=== PATIENT | female | born 1975 | race Caucasian/White ===

== ENCOUNTER 2017-11-03 08:00 | Inpatient (IN) | payer OTHER ==
[~2017-11-03] VITALS: Ht 170.2 cm; Wt 114.8 kg
--- NOTE | 2017-11-03 08:36 | History & Physical ---
General Information and HPI MD Statement: I have seen and personally examined SPATAFORE,FELIZ and documented this H&P. The patient is a 42 year old female at 40 weeks and 2 days gestation who presented with a chief complaint of IOL for AMA.. Source of Information: patient, old records Exam Limitations: no limitations History of Present Illness: Pt well known to our practice being induced for AMA >40, IVF with egg donor H/O anxiety on valtrex supression Allergies/Medications Allergies: Coded Allergies: acetaminophen (From PERCOCET) (UNKNOWN 11/03/17) PERCOCET ALLERGY PER VANESSA RN ON 11/03/17 ([facility]) oxycodone (From PERCOCET) (UNKNOWN 11/03/17) PERCOCET ALLERGY PER VANESSA RN ON 11/03/17 ([facility]) Compliance With Home Meds: GOOD Past History backup administrator History : 6 Para: 1 Last Menstrual Period: unk Estimated Delivery Date: 11/01/2017 Past backup administrator History: none Past Pregnancies Past Pregnancies: Date of Delivery: 07/14/2012 Gestational Age: 39 Length of Labor: 18hrs Weight: 8#9oz Type of Delivery: vaginal Anesthesia: block Place of Delivery: [facility] Complications: none Surgical History Pertinent Surgical History: none Review of Systems Review of Systems Constitutional: Reports: no symptoms. Denies: chills, fever. EENTM: Denies: blurred vision, double vision, visual changes. Cardiovascular: Denies: chest pain. Respiratory: Denies: short of breath. GI: Denies: diarrhea, nausea, vomiting. Neurological/Psychological: Reports: no symptoms. Exam & Diagnostic Data Last 24 Hrs of Vital Signs/I&O VSS Obstetric Exam Wgt Gained During : 3LBS Pelvimetry: TESTED TO 8#9OZ Dilation (cm): 3 Effacement (%): 50 Station: -4 Membranes: intact Fluid: unknown Fundal Height (cm): 40 Multiple Gestation? No Contractions: NONE #1 - FHR Baseline: 130 Category: 1 Estimated Weight: 4110G Presentation: VTX Patient for Induction? Yes Mora Score Mora Score Response Value Cervix Position: mid-position 1 Cervix Consistency: soft 2 Cervix Effacement: 30-50% 1 Cervix Dilation: 3-4 cm 2 Cervix Station: -2 1 Total 7 Physical Exam General Appearance Alert, Oriented X3, Cooperative, No Acute Distress Skin No Rashes HEENT Atraumatic Neck Supple Cardiovascular Regular Rate Lungs Clear to Auscultation Abdomen Soft Neurological Normal Gait, Normal Speech, Normal Tone Labs Blood Type & Rh: A POS Antibody Screen: NEG Hct/Hgb & Platelets #1: 41.5/14.4/161 Hct/Hgb & Platelets #2: 38.4/13.0/147 Rubella: IMM VDRL #1: NR VDRL #2: NR HbsAg: NEG HIV #1: NR HIV #2 NR 1 Hr P Group B Strep: NEG Initial Ultrasound: EGG DONOR IVF Anatomy Ultrasound: 06/14/17 NORMAL Genetic Testing: QUAD NEGATIVE EARLY SCREEN NEGATIVE Assessment/Plan Assessment/Plan: iup AT TERM AMA recommend induce at 40 weeks obesity BMI 39.6 IVF egg donor echo normal ATU anatomy normal anxiety on zoloft LGA shoulher screen reviewed with pt wants to attempt a vaginal delivery low platlets 147K repeat today poor weight gain 3 lbs but pt obese from conception BP 140/88 on admission will get mild PIH labs has not had evevated pressures during . 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 Core Measures Venous Thromboembolism VTE Risk Factors / No Mechanical VTE Prophylaxis d/t LowRisk-No Interven Req'd No VTE Pharm Prophylaxis d/t LowRisk-No Interven Req'd
[2017-11-03 09:39] LABS: ABSOLUTE BASOPHIL COUNT 0 /CUMM (0.0-0.2); ABSOLUTE EOSINOPHIL COUNT 0.1 /CUMM (0.0-0.7); ABSOLUTE GRANULOCYTE CT 4.7 /CUMM (1.4-6.5); ABSOLUTE LYMPH COUNT 2.1 /CUMM (1.2-3.4); ABSOLUTE MONOCYTE COUNT 0.6 /CUMM (0.10-0.60); BASOPHIL % 0.3 % (0.0-2.0); EOSINOPHIL % 1.3 % (0-5); GRANULOCYTE % 62.6 % (42.2-75.2); HEMATOCRIT 39.2 % (37-47); MEAN CORPUSCULAR HGB 32.8 PG (27.0-31.0); MEAN CORPUSCULAR HGB CONC 34.8 G/DL (33.0-37.0); MEAN CORPUSCULAR VOLUME 94.3 FL (81.0-99.0); MEAN PLATELET VOLUME 10.1 FL (7.4-10.4); PLATELET COUNT 124 /CUMM (130-400); RBC DISTRIBUTION WIDTH 15.2 % (11.5-14.5); RED BLOOD CELL CT 4.15 /CUMM (4.20-5.40); WHITE BLOOD CELL COUNT 7.4 /CUMM (4.8-10.8)
--- NOTE | 2017-11-03 16:55 | PN- Obstetrical ---
Subjective Subjective: pt feeling mild ctx Objective Last 24 Hrs of Vital Signs/I&O afeb, v/ss Intake & Output 11/03 1600 11/03 0800 11/03 0000 Intake Total Output Total Balance Patient 253 lb Weight Physical Exam: nad abd soft nt gravid Obstetric Exam Dilation (cm): 4 Effacement (%): 100 Station: -2 Membranes: AROM Fluid: light meconium Multiple Gestation? No Contractions: q3 Infant #1 - FHR Baseline: 130 Category: 1 Estimated Weight: 4110G Presentation: VTX Current Medications: Current Medications Sig/Teresa Start time Last Medication Dose Route Stop Time Status Admin Butorphanol Tartrate 1 MG Q4P PRN 11/03 0845 AC IV Butorphanol Tartrate 1 MG Q4P PRN 11/03 0845 AC IM Butorphanol Tartrate 2 MG Q4P PRN 11/03 0845 AC IV Butorphanol Tartrate 2 MG Q4P PRN 11/03 0845 AC IM Famotidine 20 MG BID 11/03 1520 AC PO Lactated Ringer's 1,000 ML Q8H 11/03 0845 AC 11/03 IV 0957 Oxytocin 30 UNITS PER PROTOCL 11/03 0845 AC 11/03 Lactated Ringer's 500 ML IV 0932 Assessment/Plan Assessment/Plan p1 @ 40wks active labor, lga fetus, gbs neg, s/p arom, lt mec, on pit for AMA IOL, and maternal status reassuring -pain mgmt per pt request -cont pit -peds at delivery -shoulder dystocia precautions ANSVD
--- NOTE | 2017-11-03 19:21 | PN- OBGYN ---
Surgical Brief Attending Note Brief Attending Note: pt w/ mild rectal pressure s/p epidural afeb, v/ss sve 8/100/-2 pit @ 14mu cont current mgmt
--- NOTE | 2017-11-03 21:15 | Labor & Delivery Summary ---
Delivery Summary Vaginal Delivery: Vaginal: vertex Episiotomy/Lacerations: Episiotomy/Lacerations: midline (midline) Repair: 2-0 vicryl Anesthesia: epidural Placenta: Placenta: spontanteous, normal, 3 vessel, nuchal cord (x_) (1) Anesthesia: block Cord PH Value: 7.37 Baby's Weight: 9 lb Apgars - 1 Min: 4 Apgars - 5 Min: 5 (10 min 8) Additional Comments: Pt FD / +3 and pushing w/ epidural. Controlled of live female over midline episiotomy, MARGOT position. Nuchal cord x 1 reduced. Body delivered w/o difficulty. Baby to mom's chest where mouth and nose bulb suctioned. Cord clamped and cut. Infant to RN and peds. Cord gases sent. 3vc placenta del spont intact. Episiotomy repaired usual fashion 2-0 vicryl. Good hemostasis. Fundus contracted. EBL 400cc. Pt tolerated well. Baby to mom.
[2017-11-04 08:55] LABS: ABSOLUTE BASOPHIL COUNT 0 /CUMM (0.0-0.2); ABSOLUTE EOSINOPHIL COUNT 0 /CUMM (0.0-0.7); ABSOLUTE LYMPH COUNT 2.1 /CUMM (1.2-3.4); ABSOLUTE MONOCYTE COUNT 0.7 /CUMM (0.10-0.60); BASOPHIL % 0.3 % (0.0-2.0); EOSINOPHIL % 0.2 % (0-5); HEMATOCRIT 34.6 % (37-47); MEAN CORPUSCULAR HGB 32.8 PG (27.0-31.0); MEAN CORPUSCULAR HGB CONC 34.5 G/DL (33.0-37.0); MEAN PLATELET VOLUME 10.7 FL (7.4-10.4); RBC DISTRIBUTION WIDTH 15.3 % (11.5-14.5); RED BLOOD CELL CT 3.64 /CUMM (4.20-5.40)
[2017-11-04 09:34] LABS: WHITE BLOOD CELL COUNT 11.8 /CUMM (4.8-10.8)
[2017-11-04 09:35] LABS: PLATELET COUNT 123 /CUMM (130-400)
--- NOTE | 2017-11-04 10:00 | PN- Post Delivery/GYN ---
Subjective Subjective: feeling well Review of Systems Constitutional: Reports: no symptoms. Denies: chills, fever. EENTM: Denies: blurred vision, double vision, visual changes. Cardiovascular: Denies: chest pain, edema. Respiratory: Denies: short of breath. Gastrointestinal: Denies: diarrhea, nausea, vomiting. Objective Last 24 Hrs of Vital Signs/I&O vss Physical Exam General Appearance Alert, Oriented X3, Cooperative, No Acute Distress Cardiovascular Regular Rate Lungs Clear to Auscultation Abdomen Soft, fundus firm Pelvic (FEMALE) lochia serosanganous Current Medications: Current Medications Sig/Teresa Start time Last Medication Dose Route Stop Time Status Admin Butorphanol Tartrate 1 MG Q4P PRN 11/03 0845 AC IV Butorphanol Tartrate 1 MG Q4P PRN 11/03 844 AC IM Butorphanol Tartrate 2 MG Q4P PRN 11/03 0745 AC IV Butorphanol Tartrate 2 MG Q4P PRN 11/03 844 AC IM Docusate Sodium 100 MG BID PRN 11/03 2114 AC PO Ephedrine 25 MG .STK-MED ONE 11/03 192 DC IV 11/03 193 Famotidine 20 MG BID 11/03 1520 AC 11/04 PO 0925 Ibuprofen 800 MG Q6P PRN 11/03 211 AC 11/04 PO 0618 Lactated Ringer's 1,000 ML Q8H 11/03 844 AC 11/03 IV 1806 Magnesium Hydroxide 30 ML DAILY PRN 11/03 2114 AC PO Oxycodone/ 1 TAB Q3P PRN 11/03 2114 AC Acetaminophen PO Oxytocin 20 UNITS Q5H 11/03 2114 DC 11/03 Lactated Ringer's 1,000 ML IV 11/04 0214 2040 Oxytocin 30 UNITS PER PROTOCL 11/03 844 AC 11/03 Lactated Ringer's 500 ML IV 0932 Last 24 Hrs of Labs/Kris: Laboratory Tests 11/04/17824: CBC w Diff NO MAN DIFF REQ, RBC 3.64 L, MCV 95.0, MCH 32.8 H, RDW 15.3 H, MPV 10.7 H, Gran % 76.0 H, Lymphocytes % 18.0 L, Monocytes % 5.5, Eosinophils % 0.2, Basophils % 0.3, Absolute Granulocytes 9.0 H, Absolute Lymphocytes 2.1, Absolute Monocytes 0.7 H, Absolute Eosinophils 0, Absolute Basophils 0, PUBS MCHC 34.5 Microbiology 11/03 1730 URINE ROUT: Urine Culture - RES Assessment/Plan Assessment/Plan PPD #!1 vss afebrile plan ambulate d/c home in am Problem List: 1. Attending MD Review Statement Attending Statement Attending MD Statement: examined this patient, discussed with family, discussed with nursing
[2017-11-05] MEDS ORDERED: IBUPROFEN800 M1 PO (08:02)
--- NOTE | 2017-11-05 08:04 | PN- OBGYN ---
Surgical Brief Attending Note Brief Attending Note: PPD #2 vss afebrile plan d/c home lochia serosanganous fundus firm. f/u 6 weeks
== END 2017-11-05 11:30 | DRG 775 ==
LOC: GNO 08:00
PROVIDERS: Obstetrics & Gynecology
PROC: 10E0XZZ Delivery of Products of Conception, External Approach (ICD-10-PCS; principal; 2017-11-03)
DX: O36.63X0 Maternal care for excessive fetal growth, third trimester, not applicable or unspecified (principal); E66.9 Obesity, unspecified; Z37.0 Single live birth; Z3A.40 40 weeks gestation of pregnancy; O77.0 Labor and delivery complicated by meconium in amniotic fluid; F41.9 Anxiety disorder, unspecified; O69.81X0 Labor and delivery complicated by cord around neck, without compression, not applicable or unspecified; O99.214 Obesity complicating childbirth; Z68.39 Body mass index [BMI] 39.0-39.9, adult
CPT/HCPCS: GNOP; GNOS; 81003; 82570; 87086; J7120